=== PATIENT | male | born 1950 | race Caucasian/White ===

== ENCOUNTER 2017-06-17 05:28 | Inpatient (IN) ==
[2017-06-17 05:46] VITALS: BMI 38.8
[2017-06-17] MEDS ORDERED: ACETAMINOPHEN 500 MG TABLET PO ONE (06:00)
[2017-06-17] MEDS ORDERED: METOCLOPRAMIDE 10mg/2ml INJECTION IVP ONE (06:00)
[2017-06-17] MEDS ORDERED: ONDANSETRON 4 MG/2 ML INJECTION IVP ONE (06:00)
[2017-06-17] MEDS ORDERED: LIDOCAINE 1% (10mg/ml) 2mL INJ PF SDV ID ONE (06:00)
[2017-06-17] MEDS ORDERED: FAMOTIDINE PB 20 MG/50 ML BAG IV ONE (06:00)
[2017-06-17] MEDS ORDERED: TRANEXAMIC ACID 1,000 MG in NS 100 ML IV ONE ×2 (06:00→07:00)
[2017-06-17] MEDS ORDERED: DEXAMETHASONE 4 MG/ML INJECTION IVP ONE (06:00)
[2017-06-17] MEDS: LR 1,000 ML IV SCH ×2 (06:03→07:40)
[2017-06-17] MEDS: NOZIN NASAL SWAB NAS SCH ×5 (06:14→21:19)
[2017-06-17] MEDS ORDERED: CEFAZOLIN 1 G INJECTION IVP ONE (06:26)
[2017-06-17] MEDS ORDERED: VANCOMYCIN 1,000 MG INJECTION ONE (06:29)
[2017-06-17] MEDS ORDERED: EPINEPHrine PF 0.25 MG, BUPIVACAINE 0.25% PF 30 ML, KETOROLAC INJ 60 MG in NS 30 ML OPSITE ONE (08:00)
[2017-06-17] MEDS ORDERED: LIDOCAINE 2% (100mg/5mL) 5ml PF SDV ONE (08:05)
[2017-06-17] MEDS ORDERED: PROPOFOL 500 MG/50 ML VIAL ONE ×2 (08:05→09:03)
[2017-06-17] MEDS ORDERED: BUPIVACAINE 0.5% (5mg/ml) PF 30ml INJ SDV ONE (08:05)
[2017-06-17] MEDS ORDERED: MIDAZOLAM 2mg/2ml INJECTION ONE (08:05)
[2017-06-17] MEDS ORDERED: PHENYLEPHRINE INJ 10 MG/ML VIAL IV ONE (08:08)
[2017-06-17] MEDS ORDERED: PROPOFOL 20 ML ONE (08:50)
[2017-06-17] MEDS ORDERED: ROPIVACAINE 0.5% (5mg/ml) 30ml INJ ONE (09:07)
--- NOTE | 2017-06-17 09:14 | Operative Note ---
- Procedure Preoperative Diagnosis: Right knee primary degenerative joint disease Postoperative Diagnosis: Same as preoperative diagnosis. Surgeon: Mitchell Cespedes MD Zipper Repairer: Marquita Navarrete Complications: None. Anesthesia: Spinal. Estimated Blood Loss: See Anesthesia Record. Fluids: Please see Anesthesia Record. Description of Procedure: Mr. Cerna and his right knee were identified and marked in the preoperative holding area. He was brought back to the operating suite. Spinal anesthetic was administered and he was placed supine on the operating table. The right lower extremity was prepped and draped in my normal sterile fashion. Timeout was performed. The Onepager robotic arm was used during the surgery. He had a partially fixed valgus deformity with a slight 5 flexion contracture. A standard anterior midline incision followed by medial parapatellar arthrotomy was performed. Anterior fat pad and meniscus were removed. The patella was everted and a patellar osteotomy was performed leaving 14mm of bone. There was complete loss of bone in the lateral compartment most significant posteriorly and on the tibial plateau. Tibial and femoral arrays and checkpoints were placed both within the original incision. The bone was then registered with the Onepager robot. Osteophytes were removed and gaps were captured both 90 and 0 with correction. The Onepager robotic software was utilized to obtain a 19 mm gaps laterally in flexion and extension 19 mm gap in flexion medially and a 20 mm gap medially in extension. A partial release of the IT band was performed. The Onepager robotic arm was then used to assist with the bone cuts. Posterior osteophytes and remaining meniscus were removed. Trial components were placed. We used a 7 femur and a 7 tibia with a 9 mm spacer and a 35 patella. He tracked well and was well balanced throughout range of motion. The tibia was stamped at the proper rotation. Trial components fit well and bone quality was adequate so we proceeded with press-fit components. Components were press-fit into place. A final spacer was also placed. The knee was ranged one more time to ensure good stability, balance and patellar tracking. 1 g of vancomycin powder was then placed into the knee joint. The capsulotomy was then closed with #1 Vicryl. I then left my home care assistant to close the subcutaneous tissue with 2-0 Vicryl and a running 0 V-lock. Running 4-0 Monoderm will be used in the subcuticular layer. After drapes are removed patient will be taken to recovery room under the care of anesthesia.
--- NOTE | 2017-06-17 10:10 | XRay Report ---
Indication: postoperative image PROCEDURE: XR knee RT 2V: Encounter: Initial Comparison: April 19, 2017 Findings: Postoperative changes of right total knee replacement are seen. There is expected postoperative subcutaneous gas. No evidence of hardware failure or acute fracture. No retained radiopaque surgical instruments or sponges. Large calcifications in the popliteal region again noted. Overlying material causing artifact. Impression: New right total knee prosthesis without evidence of immediate complication. .
[2017-06-17] MEDS ORDERED: DiphenhydrAMINE 25 MG CAPSULE PO PRN (10:14)
[2017-06-17] MEDS ORDERED: NOZIN NASAL SWAB NAS ONE (10:14)
[2017-06-17] MEDS ORDERED: ONDANSETRON 4 MG/2 ML INJECTION IVP PRN (10:14)
[2017-06-17] MEDS ORDERED: DiphenhydrAMINE 50 MG/ML INJECTION IVP PRN (10:14)
[2017-06-17] MEDS ORDERED: LORazepam 1 MG TABLET PO PRN (10:14)
[2017-06-17] MEDS: NS 1,000 ML IV SCH (10:36)
--- NOTE | 2017-06-17 11:34 | Anesthesia Preoperative Report ---
Anesthesia Preoperative Record - Date and Time Date: 06/17/17 Preoperative Diagnosis: Rt TKA M17.11 NPO Since Date: 06/16/17 NPO Since Time: 23:00 Allergies/Adverse Reactions: Allergies Allergy/AdvReac Type Severity Reaction Status Date / Time No Known Drug Allergies Allergy Verified 06/17/17 05:51 - Vital Signs Vital Signs: Temperature 97.2 F 06/17/17 10:37 Pulse Rate 77 06/17/17 11:22 Respiratory Rate 16 06/17/17 10:37 Blood Pressure 122/70 06/17/17 11:22 Pulse Oximetry 97 06/17/17 11:22 Height and Weight: Height 5 ft 10.5 in Weight 124.6 kg Body Mass Index 38.8 - Medications Inpatient Medications: Current Medications Acetaminophen (Tylenol) 650 mg PO QID KINZA Aspirin (Ecotrin) 81 mg PO BID [facility] Atenolol/Chlorthalidone (Tenoretic) 1 tab PO DAILY [facility] Bisacodyl (Dulcolax) 10 mg RECTALLY DAILY [facility] Stop: 06/19/17 20:01 Diphenhydramine HCl (Benadryl) 25 mg PO Q6H PRN PRN Reason: Itching Diphenhydramine HCl (Benadryl) 25 mg IVP Q6HR PRN PRN Reason: Itching Docusate Sodium (Colace) 100 mg PO BID KINZA Gemfibrozil (Lopid) 600 mg PO ACBID [facility] Epinephrine HCl 0.25 mg/Bupivacaine HCl 30 ml/Ketorolac Tromethamine 60 mg/ Sodium Chloride 62.25 mls @ 1 mls/hr OPSITE INTRAOP ONE PRN Reason: Protocol Stop: 06/19/17 22:14 Last Admin: 06/17/17 08:20 Dose: 1 mls/hr Cefazolin Sodium 3 g/ Sodium (Chloride) 100 mls @ 200 mls/hr IV Q8H [facility] Stop: 06/17/17 23:59 Sodium Chloride (Normal Saline) 1,000 mls @ 80 mls/hr IV .[id number] [facility] Last Admin: 06/17/17 10:36 Dose: 80 mls/hr Isopropyl Alcohol (Nozin Nasal Swab) 1 each MYRANDA 0600,1400,2200 [facility] Lorazepam (Ativan) 1 mg PO HS PRN PRN Reason: Sleep Magnesium Hydroxide (Mom) 30 ml PO DAILY [facility] Stop: 06/19/17 08:01 Naproxen (Aleve (Naproxen) 220 Mg) 440 mg PO BIDWM [facility] Ondansetron HCl (Zofran) 4 mg IVP Q4H PRN PRN Reason: Nausea &/or vomiting Oxycodone HCl (Roxicodone *Ir*) 5 - 15 mg PO Q3H PRN PRN Reason: Breakthrough pain Polyethylene Glycol (Miralax) 17 gm PO DAILY [facility] Potassium Chloride (K-Dur 20 Meq Tablet) 20 meq PO WB KINZA Senna (Senna Lax) 17.2 mg PO HS KINZA Senna (Senna Lax) 17.2 mg PO DAILY PRN PRN Reason: Constipation Home Medications: Home Medications Medication Instructions Recorded Confirmed Type aspirin 81 mg tablet,delayed 81 mg PO DAILY 04/19/17 06/17/17 History release Gemfibrozil [Lopid] 600 mg PO BID 05/24/17 06/17/17 History Naproxen [Aleve (Naproxen) 220 mg] 220 mg PO BID PRN 05/24/17 06/16/17 History Tenoretic 50 (atenolol 50 1 tab PO DAILY #30 tab 06/11/17 06/17/17 Rx mg-chlorthalidone 25 mg) tablet potassium chloride ER 10 mEq 20 meq PO DAILY #60 tab 06/11/17 06/17/17 Rx tablet,extended release Cholecalciferol (Vitamin D3) 1 cap PO DAILY 06/17/17 06/17/17 History [Vitamin D3] Docusate Sodium [Colace] 1 cap PO DAILY 06/17/17 06/17/17 History Is Patient on Beta Gian?: Yes - Medical History Respiratory: Reports: Sleep Apnea (CPAP) Cardiovascular: Reports: Hypertension, High Cholesterol DENIES: Angina, Coronary Artery Disease Gastrointestional: DENIES: Nausea or Vomiting Present, Gastroesophageal Reflux Disease Other History: DENIES: Anesthesia Reactions - Surgical History HEENT Surgeries: Reports: Tonsillectomy Respiratory Surgery/Treatments: Reports: CPAP Use GI Surgery/Treatments: Reports: Appendectomy, Colonoscopy (tubular adenoma) Anesthesia Reactions: None Hx Family Anesthesia Reaction: No History of Motion Sickness: No - Social History Smoking Status: Never smoker Hx Chewing Tobacco Use: No Second Hand Exposure: No Substance Use Type: does not use Alcohol Intake Frequency: does not drink - Pertinent Findings Laboratory: CBC and BMP 06/17/17 06:03 06/17/17 06:03 BMP 06/17/17 06:03 Sodium 144 Potassium 3.1 L Chloride 102 Carbon Dioxide 29 BUN 21.0 H Creatinine 0.7 L Glucose 114 H Calcium 9.3 EKG: Sinus Rhythm - Physical Exam Respiratory Exam: Present: lungs clear, bilateral breath sounds equal Cardiovascular Exam: Present: regular rate and rhythm - Airway Assessment Mallampati Score: II TMD: 3 Fingerbreadths Neck Extension: good - ASA ASA Score: 3 - Plan Anesthesia: General TIVA, Neuroaxial Regional/Trunk Block: Spinal Peripheral Nerve Block: Other (right adductor canal block) - Discussion Discussion: Discussed risks/options/alternatives of anesthesia and questions answered. Patient consents. Nursing pain assessment noted. Present for Discussion: spouse, children Attestation Statement: Prior to the delivery of any anesthetic medication, I examined the patient, developed the plan, obtained the patient's consent and discussed the risk and benefits of the procedure with the patient/guardian. - Additional Information Seen by Anesthesia: Yes
--- NOTE | 2017-06-17 11:38 | Anesthesia Postoperative Note ---
- Date and Time Date: 06/17/17 Time: 10:05 - Status Patient Participated in Evaluation: Patient Participated in Person Vital Signs: Temperature 97.2 F 06/17/17 10:37 Pulse Rate 77 06/17/17 11:22 Respiratory Rate 16 06/17/17 10:37 Blood Pressure 122/70 06/17/17 11:22 Pulse Oximetry 97 06/17/17 11:22 Respiratory Function: Airway Patent Cardiovascular Function: Regular Pulse EKG: Sinus Rhythm Mental Status: Alert and Oriented Pain Intensity: 0 Hydration: IV Infusing Complications During Recover: None Apparent - Follow-Up Instructions Instructions: Per Surgeon
--- NOTE | 2017-06-17 11:41 | Anesthesia Procedure Note ---
Peripheral Nerve Blockade - Procedure Physician: Lev Cespedes MD Date: 06/17/17 Surgical Procedure: left robotic TKA Discussion: Discussed risks/options/alternatives of anesthesia and questions answered. Patient consents. Nursing pain assessment noted. Block Start: 09:48 Block Stop: 09:51 Blocked Employed: Adductor Canal Indication: Post-Operative Pain Approach: Right Side Confirmed Position: Semi-[place] Patient: Consent, Risks/Benefits Discussed, Informed, Post Block Act. Discussed IV Sedation: No (spinal active) Initial Vital Signs: Temperature 97.7 F 06/17/17 05:46 Temperature Source Oral 06/17/17 05:46 Pulse Rate 74 06/17/17 05:46 Respiratory Rate 14 06/17/17 05:46 Blood Pressure 157/99 H 06/17/17 05:46 Blood Pressure Mean 118 06/17/17 05:46 Blood Pressure Position Sitting 06/17/17 05:46 Pulse Oximetry 93 06/17/17 05:46 Oxygen Delivery Method 06/17/17 05:46 Post Vital Signs: Temperature 97.2 F 06/17/17 10:37 Pulse Rate 77 06/17/17 11:22 Respiratory Rate 16 06/17/17 10:37 Blood Pressure 122/70 06/17/17 11:22 Pulse Oximetry 97 06/17/17 11:22 Initial Pain Pain Score: 0 Post Block Pain Score: 0 Prep: Chlorhexadine/ETOH Ultrasound Used?: No - Injectate Ropivacaine (%): 0.5 Ropivacaine (mL): 30 Was Epi 1:200,000 Used?: No Injection: Injection made incrementally with constant monitoring and negative aspiration every 5 ml
[2017-06-17] MEDS: ACETAMINOPHEN 325 MG TABLET PO SCH ×3 (13:55→21:19)
[2017-06-17] MEDS: Oxycodone *IR* 5 MG TABLET PO PRN ×3 (13:55→21:19)
[2017-06-17] MEDS: CEFAZOLIN 3 G in NS 100 ML IV SCH (15:41)
[2017-06-17] MEDS ORDERED: SALINE FLUSH 10ml SYRINGE IV PRN (15:55)
[2017-06-17] MEDS: GEMFIBROZIL 600 MG TABLET PO SCH (17:12)
[2017-06-17] MEDS: NAPROXEN 220 MG TABLET PO SCH (18:48)
[2017-06-17] MEDS ORDERED: SENNOSIDES 8.6 MG TABLET PO SCH (21:00)
[2017-06-17] MEDS: DOCUSATE SODIUM 100 MG CAPSULE PO SCH (21:19)
[2017-06-17] MEDS: ASPIRIN *EC* 81 MG TABLET PO SCH (21:19)
[2017-06-18] MEDS: CEFAZOLIN 3 G in NS 100 ML IV SCH (00:09)
[2017-06-18] MEDS: NS 1,000 ML IV SCH (00:09)
[2017-06-18 04:08] VITALS: RESP 16; TEMP 97.1
[2017-06-18] MEDS: Oxycodone *IR* 5 MG TABLET PO PRN ×2 (06:29→10:25)
[2017-06-18] MEDS: NOZIN NASAL SWAB NAS SCH (06:30)
[2017-06-18] MEDS: GEMFIBROZIL 600 MG TABLET PO SCH (06:31)
[2017-06-18] MEDS: NAPROXEN 220 MG TABLET PO SCH (08:43)
[2017-06-18] MEDS: ASPIRIN *EC* 81 MG TABLET PO SCH (08:45)
[2017-06-18] MEDS: DOCUSATE SODIUM 100 MG CAPSULE PO SCH (08:45)
[2017-06-18] MEDS: ACETAMINOPHEN 325 MG TABLET PO SCH (08:48)
[2017-06-18] MEDS ORDERED: ATENOLOL/CHLORTHALIDONE 50 MG/25 MG TABLET PO SCH (09:00)
[2017-06-18] MEDS ORDERED: POLYETHYL GLYCOL 3350 17gm PACKET PO SCH (09:00)
--- NOTE | 2017-06-18 09:35 | Orthopedic Progress Note ---
Date: Date: 06/18/17 Time: 929 Subjective/Severity of Illness: Christopher has moderate knee pain along the lateral aspect. He wants to limit narcotics as much as possible, due to a son that that apparently was related to some type of narcotic use. No CP, cough or SOA. He has been mobile with good tolerance. He had some bloody drainage from the lower part of his incision but it appears to have stopped. We will watch this. K+ is improved. Will give an additional 20mEq this AM to his normal dose. Anticipate discharge later today. Orthopedic Exam Vital signs: Temperature 97.1 F 06/18/17 04:07 Pulse Rate 86 06/18/17 07:27 Respiratory Rate 16 06/18/17 07:27 Blood Pressure 147/92 H 06/18/17 07:27 Pulse Oximetry 96 06/18/17 07:27 - Constitutional General Appearance: Present: alert, cooperative, no acute distress - Respiratory Exam Present: non-labored - Cardiovascular Exam Present: pedal pulses intact - Extremities Exam Present: pulses intact. Absent: calf tenderness - Dressing Dressing: bloody drainage (at lower incision.) - Neurological Exam Present: intact to light touch, no deficits - Psychiatric Exam Present: alert, normal affect - Labs Result Diagrams: 06/18/17 04:09 06/18/17 04:09 Abnormal lab results 06/18/17 06/18/17 Range/Units 04:09 04:09 Hct 40.2 L (41-53) % Potassium 3.5 L (3.6-5) MEQ/L BUN 26.0 H (9-20) MG/DL Creatinine 0.7 L (0.8-1.5) mg/dL BUN/Creatinine Ratio 37 H (6-26) RATIO Glucose 112 H (75-110) MG/DL Calculated Osmolality 281 H (261-280) MOSM/KG H & H 06/17/17 06/18/17 Range/Units 06:03 04:09 Hgb 16.4 14.3 D (13.5-17.5) GM/DL Hct 45.1 40.2 L (41-53) % Orthopedic Assessment and Plan (1) Primary osteoarthritis of right knee Status: Acute Assessment and Plan: His BP is stable. Continue home meds. Will watch for more bleeding from the lower incision. Recheck at noon. work with PT / OT SCDs and ASA for DVT coverage. CM for discharge planning. - Anticoagulation Therapy Anticoagulation: ASA 81 mg PO BID x6 weeks Hospital Course Summary Disclaimer: The visit summary below is not to be considered part of the above Progress Note.
[2017-06-18] MEDS ORDERED: SENNOSIDES 8.6 MG TABLET PO PRN (09:46)
[2017-06-18 12:14] VITALS: BP 124/76; PULSE 65; O2SAT 94
--- NOTE | 2017-06-18 12:46 | Discharge Summary ---
Orthopedic Discharge Info Date of admission: 06/17/17 05:28 Anticipated date of discharge: 06/18/17 Primary care physician: Aaron Kemp MD Attending Physician: Lev Cespedes MD Consults: 06/17/17 05:35 Consult to Anesthesiology [CONS] Routine Reason For Exam: Preoperative Assessment 06/17/17 10:14 Case Management Consult [CONS] Routine Reason For Exam: Discharge Planning DME-Walker [CONS] Routine Height: 5 ft 10.5 in Weight: 124.6 kg Total Joint Outpatient Therapy [CONS] Routine Comment: Remove dressing in 2 weeks - Discharge Diagnosis (1) Primary osteoarthritis of right knee Status: Acute - Laboratory Result Diagrams: 06/18/17 04:09 06/18/17 04:09 Laboratory: Abnormal lab results 06/18/17 06/18/17 Range/Units 04:09 04:09 Hct 40.2 L (41-53) % Potassium 3.5 L (3.6-5) MEQ/L BUN 26.0 H (9-20) MG/DL Creatinine 0.7 L (0.8-1.5) mg/dL BUN/Creatinine Ratio 37 H (6-26) RATIO Glucose 112 H (75-110) MG/DL Calculated Osmolality 281 H (261-280) MOSM/KG H & H 06/17/17 06/18/17 Range/Units 06:03 04:09 Hgb 16.4 14.3 D (13.5-17.5) GM/DL Hct 45.1 40.2 L (41-53) % Orthopedic Discharge HPI - HPI Comments This patient was admitted for elective surgical tx of end stage degenerative joint disease that failed to respond to conservative treatment. Further details of this is found in the admission H&P. Orthopedic Hospital Course Hospital course: 06/18/17 12:45 After appropriate preoperative clearance and signing of operative consent, the patient was given IV antibiotics, according to orthopedic protocol. The patient was taken to the operating room and underwent elective right total knee arthroplasty. Following surgery, antibiotics were discontinued less than 24 hours according to joint protocol. Appropriate anticoagulants were initiated and SCDs added for DVT prevention. The dressing was clean, dry, and intact. Pain control was obtained via multimodal approach. Bowel motivation addressed with scheduled and PRN medications. Early mobilization was initiated through PT services. Discharge arrangements made by a collaborative effort between the patient and Case Management. Patient had hypokalemia day of surgery with K+3.1, improved with 40meq replacement. Continued daily potassium as well. Post op day 1, required additional 20meq replacement for K+ 3.5. Stable throughout stay. Will have patient follow up with PCP for recheck of potassium in 5 days. Drainage on distal mepilex from surgical incision after PT. Mepilex removed, tammi placed to distal surgical incision, hemostasis achieved. Cleansed with chloraprep and new mepilex dressing applied prior to discharge Follow-up is scheduled in 2-3 weeks. Discharge instructions given by orthopedic providers and nursing staff at discharge. Discharge condition was good. 06/18/17 12:46 06/18/17 14:09 Care extended to > 2 midnight stays?: No Discharge Plan - Med Rec/Dispo Referrals/Follow Up: Lev Cespedes MD [Physician] - 07/14/17 8:30 am [place] Instructions: [facility] Postop Instructions Additional Instructions: ADVANCED THERAPY ON 06/21/2017 AT 10:40AM AT [facility]. Prescriptions: New Docusate Sodium [Colace] 100 mg PO BID cap Milk of Magnesia [Mom] 30 ml PO DAILY udc Oxycodone *IR* [Roxicodone *Ir*] 5 - 15 mg PO Q3H PRN #60 tab PRN Reason: Breakthrough Pain Aspirin *EC* [Ecotrin] 81 mg PO BID tab Continue Naproxen [Aleve (Naproxen) 220 mg] 220 mg PO BID PRN PRN Reason: Pain Cholecalciferol (Vitamin D3) [Vitamin D3] 1 cap PO DAILY Gemfibrozil [Lopid] 600 mg PO BID Docusate Sodium [Colace] 1 cap PO DAILY potassium chloride ER 10 mEq tablet,extended release 20 meq PO DAILY #60 tab aspirin 81 mg tablet,delayed release 81 mg PO DAILY Tenoretic 50 (atenolol 50 mg-chlorthalidone 25 mg) tablet 1 tab PO DAILY #30 tab - Disposition 01 Discharged Home, Self-Care - Dismissal Complete Discharge Instructions are:: Complete, Incomplete
[2017-06-19] MEDS ORDERED: BISACODYL 10 MG SUPPOSITORY RECTALLY SCH (20:00)
== END 2017-06-18 14:48 | disposition home or self-care (01) | DRG 470 ==
LOC: NMC.PERIOP 05:28 → SRG 10:20
PROVIDERS: ADMIT Orthopaedic Surgery; ATTEND Orthopaedic Surgery